=== PATIENT | male | born 1940 | race Caucasian/White ===

== ENCOUNTER → 2018-09-29 | Outpatient (CLI) | payer MEDICARE | END | disposition home or self-care (01) | LOC: PCVCCLINIC 15:43 | PROVIDERS: ATTEND Internal Medicine | DX: R06.09 Other forms of dyspnea (principal); R42 Dizziness and giddiness; E78.5 Hyperlipidemia, unspecified; I73.9 Peripheral vascular disease, unspecified; E11.9 Type 2 diabetes mellitus without complications; I25.10 Atherosclerotic heart disease of native coronary artery without angina pectoris | CPT/HCPCS: 93005; G0463 ==

== ENCOUNTER → 2018-10-16 | Outpatient (CLI) | payer MEDICARE ==
--- NOTE | 2018-10-16 08:36 | PCVCIMAG ---
EXAM: BILATERAL CAROTID DUPLEX INDICATION: Carotid Occlusive Disease. FINDINGS: Doppler Measurements (centimeters per second): RIGHT: Peak CCA-74, Peak ECA-104, Diastolic ICA-27, Peak ICA-113, ICA/CCA Ratio-1.5. LEFT: Peak CCA-96, Peak ECA-103, Diastolic ICA-21, Peak ICA-72, ICA/CCA Ratio-0.7. RIGHT CAROTID: The carotid bulb has moderate plaque. The proximal internal carotid artery shows <40% stenosis. The common carotid artery shows no significant stenosis. The external carotid artery shows no significant stenosis. LEFT CAROTID: The carotid bulb has no significant plaque. The proximal internal carotid artery shows no significant stenosis. The common carotid artery shows no significant stenosis. The external carotid artery shows no significant stenosis. Antegrade flow in both vertebral arteries. IMPRESSION: <40% stenosis of the right internal carotid artery with moderate plaque. No significant stenosis of the left internal carotid artery with no significant plaque. LOC:[place] [id number]
--- NOTE | 2018-10-16 11:32 | PCVCIMAG ---
APPROVED REPORT Study performed: 10/16/2018 08:29:29 EXAM: Comprehensive 2D, Doppler, and color-flow Echocardiogram Patient Location: Echo lab Status: routine BSA: 2.20 HR: 53 bpmBP: 130/70 mmHg Rhythm: Bradycardia Other Information Study Quality: Adequate Indications Dizziness and Vertigo Dyspnea 2D Dimensions IVSd: 12.38 (7-11mm) LVDd: 40.71 mm PWd: 10.80 (7-11mm)Ascending Ao: 46.78 (22-36mm) LVDs: 24.50 (25-40mm) Left Atrium: 41.26 (27-40mm) Aortic Root: 41.81 mm LV Single Plane 4CH: 53.12 % LV Single Plane 2CH: 56.00 % Biplane EF: 54.5 % Volumes Left Atrial Volume (Systole) Single Plane 4CH: 47.96 mLSingle Plane 2CH: 62.43 mL LA ESV Index: 28.00 mL/m2 Aortic Valve AoV Peak Henrik.: 1.54 m/s AO Peak Gr.: 9.45 mmHgLVOT Max P.57 mmHg LVOT Max V: 1.07 m/s AI Vmax: 4.32 m/s AI [place]: 3.03 m/s2 AI PHT: 413.25 ms Mitral Valve E/A Ratio: 0.9 MV Decel. Time: 226.73 ms MV E Max Henrik.: 0.81 m/s MV A Henrik.: 0.90 m/s MV PHT: 65.75 ms IVRT: 114.19 ms Pulmonary Valve PV Peak Henrik.: 0.87 m/sPV Peak Gr.: 3.06 mmHg Pulmonary Vein P Vein S: 0.25 m/sP Vein A: 0.29 m/s P Vein D: 0.44 m/sP Vein A Dur.: 155.7 msec P Vein S/D Ratio: 0.57 Tricuspid Valve TR Peak Henrik.: 2.29 m/s TR Peak Gr.: 21.03 mmHg Left Ventricle The left ventricle is normal size. There is normal LV segmental wall motion. Borderline concentric left ventricular hypertrophy. Left ventricular systolic function is normal. The left ventricular ejection fraction is within the normal range. LVEF is 55%. Grade I - abnormal relaxation pattern. Right Ventricle The right ventricle is normal size. The right ventricular systolic function is normal. Atria The left atrium size is normal. The right atrium size is normal. Aortic Valve The aortic valve is normal in structure. Moderate aortic regurgitation. There is no aortic valvular stenosis. Mitral Valve The mitral valve is normal in structure. Mild mitral regurgitation. No evidence of mitral valve stenosis. Tricuspid Valve The tricuspid valve is normal in structure. Trace tricuspid regurgitation with PAP of 28 mmHg. Pulmonic Valve The pulmonary valve is normal in structure. Trace pulmonic regurgitation. Great Vessels Aortic root is moderately dilated to 4.5 cm. The ascending aorta is moderately dilated to 4.7 cm. IVC is normal in size and collapses >50% with inspiration. Pericardium There is no pericardial effusion. There is no pleural effusion. <Conclusion> The left ventricle is normal size. LVEF is 55%. The aortic valve is normal in structure. Moderate aortic regurgitation. The mitral valve is normal in structure. Mild mitral regurgitation. The tricuspid valve is normal in structure. Trace tricuspid regurgitation with PAP of 28 mmHg. The pulmonary valve is normal in structure. Trace pulmonic regurgitation.
--- NOTE | 2018-10-16 12:18 | PCVCIMAG ---
APPROVED REPORT Imaging Protocol: Rest Tc-99m/Stress Tc-99m 1 day Study performed: 10/16/2018 09:34:51 Indication: CAD , Dyspnea Patient Location: Out-Patient Stress Nurse: Divina Charles RN, Jerica Ernandez RN ND Tech:Nya Rashaad [facility] Ht: 5 ft 10 in Wt: 228 lbs BSA: 2.21 m2 HR: 84 bpm BP: 187/81 mmHg BMI: 32.71 Medical History Medical History: CAD, CKD, Hyperlipidemia, Age Medications: ASA, Metformin, Crestor Allergies: No known drug allergies Pretest Chest Pain Characteristics: No chest pain Resting Data Rest SPECT myocardial perfusion imaging was performed in supine position 45 minutes following the intravenous injection of 11.1 mCi of Tc-99m Sestamibi. Time of rest injection: 0900 Date: 10/16/2018 Administration Route: IV Administration Site: Right Hand Exercise Stress At peak stress, the patient was injected intravenously with 35.9mCi of Tc-99m Sestamibi. Time of stress injection: 1015 Date: 10/16/2018 Administration Route: IV Administration Site: Right Hand Patient continued to exercise for 1 minute(s). Gated Stress SPECT was performed 45 minutes after stress injection. The images were gated to evaluate regional wall motion and calculate left ventricular ejection fraction. Stress Test Details Stress Test: Exercise stress testing was performed using a Maurisio protocol. HRMax Heart Rate (APMHR): 144 bpm Resting HR: 84 bpmTarget HR (85% APMHR): 122 bpm Max HR Achieved: 142 bpm % of APMHR: 98 Recovery HR: 98 bpm BP Resting BP: 187/81 mmHg Max BP: 208/90 mmHg Recovery BP: 157/70 mmHg ECG Resting ECG: Sinus Rhythm Stress ECG: Sinus Tachycardia Arrhythmia: None Recovery ECG: Sinus Rhythm Clinical Reason for Termination: Dyspnea Stress Symptoms: Dyspnea Exercise duration: 9 min 00 sec Exercise capacity: 10.10 METs Symptoms resolved during recovery. Stress ECG Conclusion 1. Subjectively negative for ischemia 2. Electrocardiographically negative for ischemia 3. Satisfactory functional capacity Study Data Post stress, the left ventricular ejection was 71%.. SSS: 1 SRS: 3 SDS: 1 TID = 0.72. Perfusion There is a medium area of moderately reduced uptake in the entire segment of the inferior wall which is seen on the stress images as well as the resting images. This area thickens and moves normally and is most consistent with attenuation artifact. Nuclear Conclusion ECG Findings: negative for ischemia Clinical Findings: negative for ischemia Nuclear Findings: negative for ischemia attenuation artifact noted Exercise Capacity: normal Left Ventricular Function: normal 1. Low Risk Study <Conclusion> 1. Subjectively negative for ischemia 2. Electrocardiographically negative for ischemia 3. Satisfactory functional capacity
== END | disposition home or self-care (01) ==
LOC: PCVCIMAG 07:40
PROVIDERS: ATTEND Internal Medicine
DX: I65.21 Occlusion and stenosis of right carotid artery (principal); I08.0 Rheumatic disorders of both mitral and aortic valves; I73.9 Peripheral vascular disease, unspecified; I25.10 Atherosclerotic heart disease of native coronary artery without angina pectoris; R42 Dizziness and giddiness; N18.9 Chronic kidney disease, unspecified; E78.5 Hyperlipidemia, unspecified; Z87.891 Personal history of nicotine dependence
CPT/HCPCS: 78452; 93017; 93306; 93880; A9500

== ENCOUNTER → 2018-11-03 | Outpatient (CLI) | payer MEDICARE | END | disposition home or self-care (01) | LOC: PCVCCLINIC 12:50 | PROVIDERS: ATTEND Internal Medicine | DX: R06.09 Other forms of dyspnea (principal); R42 Dizziness and giddiness; E78.5 Hyperlipidemia, unspecified; E11.9 Type 2 diabetes mellitus without complications; Z79.82 Long term (current) use of aspirin; Z79.84 Long term (current) use of oral hypoglycemic drugs; Z87.891 Personal history of nicotine dependence | CPT/HCPCS: G0463 ==